=== PATIENT | female | born 1950 | race Caucasian/White ===

== ENCOUNTER 2016-10-06 13:05 | Day surgery (SDC) | payer MEDICARE, OTHER ==
--- OUTSIDE RECORDS SUMMARY | 2016-10-06 13:08 | XMS REPORT | Continuity of Care Document ---
:1950 Author Organization [employer] [place] [address] Care Team Providers Name Role Phone Moreno Davenport Primary Care Provider [phone] Source Comments This disclosure is being made pursuant to the [email or web address] program and maynot contain all information available regarding this patient.[facility] Active Allergies and Adverse Reactions Allergen Noted Date Severity Reactions Comments Harmon 09/30/2014 Other (See Comments) Current Medications Be aware that medications may not be up to date as of this document. Alwaysverify current medications with the patient. Prescription Sig. Disp. Refills Start Date End Date Status atorvastatin (LIPITOR) Take 1 tablet by Active 80 MG tablet mouth daily. losartan (COZAAR) 50 MG Take 1 tablet by Active tablet mouth daily. nitroGLYCERIN Place 1 tablet Active (NITROSTAT) 0.4 MG SL under the tongue tablet as needed. PACLitaxel Protein-Bound Inject into the Active Part (ABRAXANE IV) vein. Indications: Give D1, D8, D15 every 21 Started 11/18/2014 CARBOPLATIN IV Inject into the Active vein. Indications: Give D1 every 21 Started 11/18/2014 Palonosetron HCl (ALOXI Inject into the Active IV) vein. Indications: Give D1, D8, D15 every 21 Started 11/18/2014 INV INVESTIGATIONAL DRUG Indications: Give Active D1, D8, D15 every 21 Started 11/18/2014 magnesium 500 MG TABS Take 1,000 mg by Active tablet mouth 2 (two) times daily. multivitamin with Take by mouth Active minerals (THERA M PLUS) daily. TABS tablet tiotropium (SPIRIVA Place 1 capsule 60 capsule 6 09/06/2015 Active HANDIHALER) 18 MCG into inhaler and inhalation capsule inhale daily. budesonide-formoterol Inhale 2 puffs 1 Inhaler 12 09/06/2015 Active (SYMBICORT) 160-4.5 into the lungs 2 MCG/ACT inhaler (two) times daily. albuterol (PROAIR HFA) Inhale 2 puffs 1 Inhaler 4 09/06/2015 Active 108 (90 BASE) MCG/ACT into the lungs inhaler every 6 (six) hours as needed for Wheezing or Shortness of Breath. metoprolol succinate Take 50 mg by Active (TOPROL-XL) 50 MG 24 hr mouth daily. tablet isosorbide mononitrate Take 30 mg by Active (IMDUR) 30 MG 24 hr mouth daily. tablet lidocaine (LIDODERM) 5 % Place 1 patch 14 patch 0 11/24/2015 Active onto the skin daily. methocarbamol (ROBAXIN) Take 1 tablet by 90 tablet 0 11/26/2015 Active 750 MG tablet mouth 3 (three) times daily. ipratropium-albuterol Take 3 mLs by Active (DUONEB) 0.5-2.5 (3) nebulization 4 MG/3ML SOLN (four) times daily as needed. levofloxacin (LEVAQUIN) Take 500 mg by Active 500 MG tablet mouth daily. potassium chloride TAKE ONE TABLET 60 tablet 3 12/09/2015 Active (K-TAB, KLOR-CON) 10 MEQ BY MOUTH TWICE A tablet DAY hydrochlorothiazide TAKE ONE TABLET 30 tablet 3 12/20/2015 Active (HYDRODIURIL) 12.5 MG BY MOUTH EVERY tablet DAY LORazepam (ATIVAN) 0.5 Take 1 tablet by 90 tablet 1 01/14/2016 Active MG tablet mouth every 8 (eight) hours as needed for Anxiety. omeprazole (PRILOSEC) 40 TAKE ONE CAPSULE 60 capsule 6 01/25/2016 Active MG capsule BY MOUTH TWICE A DAY nystatin (MYCOSTATIN) APPLY TOPICALLY 30 g 0 03/14/2016 Active powder UNDER THE BREAST TWO TIMES A DAY Active Problems Problem Noted Date Sore throat 01/05/2016 COPD (chronic obstructive pulmonary disease) (HCC) 01/05/2016 Diarrhea 12/29/2015 Right-sided chest wall pain 11/25/2015 Encounter for antineoplastic chemotherapy 12/09/2014 Malignant neoplasm of lower lobe of right lung (HCC) 11/19/2014 History of tobacco use 11/19/2014 Dyspnea 08/20/2014 Chronic airway obstruction (HCC) 06/24/2013 Overview: Overview: Shin LAM MD Essential hypertension 12/18/2012 Overview: Overview: Hypercholesterolemia 12/18/2012 Overview: Overview: Resolved Problems Problem Noted Date Resolved Date Non-small cell lung cancer (HCC) 04/21/2015 06/23/2015 Examination of participant in clinical trial 04/21/2015 06/23/2015 Non-small cell cancer of right lung (HCC) 03/29/2015 06/23/2015 Neoplastic malignant related fatigue 03/17/2015 06/23/2015 Hypokalemia 03/12/2015 07/17/2015 Hypomagnesemia 03/12/2015 07/17/2015 Nausea & vomiting 03/12/2015 06/23/2015 Weakness generalized 01/27/2015 06/23/2015 Pneumonia, organism unspecified(486) 01/26/2015 06/23/2015 Neutropenia (HCC) 12/30/2014 06/23/2015 Leukopenia due to antineoplastic chemotherapy (HCC) 12/21/2014 06/23/2015 Anemia 12/21/2014 07/17/2015 Rash 12/21/2014 06/23/2015 Diarrhea 12/21/2014 06/23/2015 Vaginal spotting 04/12/2014 06/23/2015 Non-small cell carcinoma of right lung, stage 2 (HCC) 03/21/2014 10/14/2015 Non-small cell lung cancer (HCC) 12/28/2013 10/14/2015 Lump or mass in breast 09/24/2013 06/23/2015 Overview: Overview: Shin LAM MD Heart disease 12/18/2012 06/23/2015 Overview: Overview: Malignant neoplasm of bronchus and lung 12/18/2012 10/14/2015 Overview: Overview: Shin LAM MD Most Recent Encounters Date Type Specialty Providers Description 08/24/2016 Refill Oncology Darren Lam MD 08/23/2016 Refill Oncology Darren Lam MD 08/22/2016 Refill Oncology Darren Lam MD Social History Tobacco Use Types Packs/Day Years Used Date Former Smoker Smokeless Tobacco: Never Used Alcohol Use Drinks/Week oz/Week Comments Yes Alcoholic Drinks/day: 1 glass about every 2 months Last Filed Vital Signs Vital Sign Reading Time Taken Blood Pressure 128/80 01/17/2016 10:09 AM CDT Pulse 100 01/17/2016 10:09 AM CDT Temperature 36.3 C (97.3 F) 01/17/2016 10:09 AM CDT Respiratory Rate 20 01/17/2016 10:09 AM CDT Height 1.588 m (5' 2.5") 01/17/2016 10:09 AM CDT Weight 87.091 kg (192 lb) 01/17/2016 10:09 AM CDT Body Mass Index 34.54 01/17/2016 10:09 AM CDT Oxygen Saturation 95% 01/17/2016 10:09 AM CDT Plan of Care Patient Goal Type Goal Blood Pressure Blood Pressure below 140/90 Health Maintenance Due Date Last Done Comments Tetanus/Pertussis (1 - Tdap) 1969 Colonoscopy 2000 Well Adult Visit 2000 Zoster Vaccine 60+ 2010 Bone Density 2015 Pneumococcal Low/Medium Risk 65+ (1 of 2 - PCV13) 2015 Influenza Immunization (#1) 2015 Mammogram 08/31/2017 09/01/2015 Hepatitis C Screening Completed 11/06/2014 Results from Last 3 Months Not on file Insurance Payer Benefit Plan / Subscriber ID Type Phone Address Group MEDICARE MEDICARE A AND B [id number] [phone] [address] [place] [address] [facility] [id number] Managed [phone] [address] MEDICAID [place], [place] [id number] [phone] [place] [address]
--- NOTE | 2016-10-06 13:57 | OR ---
Anesthesia Pre Procedure Eval Date of Service: 10/06/16 Pre Procedure Evaluation: Last Vital Signs Temp 36.8 C 10/06/16 13:22 Pulse 103 H 10/06/16 13:22 Resp 18 10/06/16 13:22 BP 98/68 10/06/16 13:22 Pulse Ox 95 10/06/16 13:22 O2 Oxygen Delivery Method Nasal Cannula Anesthesia Pre Procedure Evaluation DATE: 10/06/2016 TIME: 1335 INDICATIONS: Rib pain status post rib resection. PAST MEDICAL HISTORY: Ms. Henao has had a pneumonectomy on the right side for cancer. She has had consistent severe pain for approximately 6 months which has been getting progressively worse. The pain is apparently localized at the right seventh rib area where there was a resection for the pneumonectomy. On interview she became rather faint which resolved on laying her back to a more supine position. Her preop blood pressure was 98/68 however on taking it after she was in the reclining position the blood pressure is 126/68 with a resolution of the faint feeling. She near simultaneously experienced nausea which eventually passed. Because she was very uncomfortable and thirsty I did have her drink some water and take her ondansetron. A bit later, shortly after the interview was completed she related that she was having pressure in the substernal area that was new to her and question whether this possibly her heart. Considering her multi-organ dysfunction it would be prudent to have her workup for chest pain protocol. As such I requested a transfer to ER for investigation of her current symptoms. EXAM: Heart regular; lungs diminished with rhonchi ASSESSMENT OF MEDICAL STATUS: See above, transferred to ER prior to procedure. PLANNED PROCEDURE: Deferred Home Medications: HOME MEDICATIONS Atorvastatin Calcium [Lipitor] 80 mg PO DAILY 12/08/13 [Last Taken Unknown] Losartan Potassium [Cozaar] 50 mg PO DAILY 12/08/13 [Last Taken Unknown] Nitroglycerin [Nitrostat] 0.4 mg SL [id number] PRN 12/08/13 [Last Taken Unknown] Omeprazole [Prilosec] 40 mg PO BID 12/08/13 [Last Taken Unknown] Budesonide [Pulmicort Respules] 2 ml IH BID 10/05/16 [Last Taken Unknown] Hypertonic Saline 7% 4 ml INH QID 10/05/16 [Last Taken Unknown] Ipratropium [place] [Ipratropium [place] (Atrovent)] 0.5 mg IH TID 10/05/16 [ Last Taken Unknown] Isosorbide Mononitrate [Imdur] 30 mg PO DAILY 10/05/16 [Last Taken Unknown] L.acidoph,Paracasei, B.lactis [Probiotic] 1 each PO DAILY 10/05/16 [Last Taken Unknown] LORazepam [Ativan] 0.5 mg PO BID PRN 10/05/16 [Last Taken Unknown] Lidocaine [Lidoderm 5%] 1 patch TP DAILY PRN 10/05/16 [Last Taken Unknown] Metoprolol Succinate [Toprol Xl] 50 mg PO DAILY 10/05/16 [Last Taken Unknown] Prochlorperazine Maleate [Compazine] 10 mg PO Q6H PRN 10/05/16 [Last Taken Unknown] Ranitidine HCl [Zantac] 300 mg PO HS 10/05/16 [Last Taken Unknown] Sucralfate [Carafate] 1 gm PO QID 10/05/16 [Last Taken Unknown] fentaNYL [Duragesic] 50 mcg TD Q72H 10/05/16 [Last Taken Unknown] guaiFENesin [Mucinex] 600 mg PO BID 10/05/16 [Last Taken Unknown] oxyCODONE HCL [Oxycodone HCl] 20 mg PO Q4H PRN 10/05/16 [Last Taken Unknown] Azithromycin 250 mg PO 3XW 10/06/16 [Last Taken Unknown] Hydrochlorothiazide 12.5 mg PO DAILY 10/06/16 [Last Taken Unknown] Multivitamin [One Daily Multivitamin] 1 each PO DAILY 10/06/16 [Last Taken Unknown]
--- NOTE | 2016-10-06 15:01 | OR ---
Anesthesia Pre Procedure Eval Date of Service: 10/06/16 Pre Procedure Evaluation: Last Vital Signs Temp 36.8 C 10/06/16 13:22 Pulse 103 H 10/06/16 13:22 Resp 18 10/06/16 13:22 BP 98/68 10/06/16 13:22 Pulse Ox 95 10/06/16 13:22 O2 Oxygen Delivery Method Nasal Cannula Anesthesia Pre Procedure Evaluation DATE: 10/06/2016 TIME: 1500 INDICATIONS: Intercostal pain status post rib resection right seventh rib PAST MEDICAL HISTORY: Patient's had a six-month history of increasing rib pain associated with rib resection status post pneumonectomy. Please see previous note for evaluation for potential chest pain issues. Her EKG was negative as were troponin levels. EXAM: Heart S1 and S2 regular; lungs rhonchi diminished right ASSESSMENT OF MEDICAL STATUS: Appropriate candidate for intercostal block. Risks and alternatives were discussed. PLANNED PROCEDURE: Intercostal block for pain. Home Medications: HOME MEDICATIONS Atorvastatin Calcium [Lipitor] 80 mg PO DAILY 12/08/13 [Last Taken Unknown] Losartan Potassium [Cozaar] 50 mg PO DAILY 12/08/13 [Last Taken Unknown] Nitroglycerin [Nitrostat] 0.4 mg SL [id number] PRN 12/08/13 [Last Taken Unknown] Omeprazole [Prilosec] 40 mg PO BID 12/08/13 [Last Taken Unknown] Budesonide [Pulmicort Respules] 2 ml IH BID 10/05/16 [Last Taken Unknown] Hypertonic Saline 7% 4 ml INH QID 10/05/16 [Last Taken Unknown] Ipratropium [place] [Ipratropium [place] (Atrovent)] 0.5 mg IH TID 10/05/16 [ Last Taken Unknown] Isosorbide Mononitrate [Imdur] 30 mg PO DAILY 10/05/16 [Last Taken Unknown] L.acidoph,Paracasei, B.lactis [Probiotic] 1 each PO DAILY 10/05/16 [Last Taken Unknown] LORazepam [Ativan] 0.5 mg PO BID PRN 10/05/16 [Last Taken Unknown] Lidocaine [Lidoderm 5%] 1 patch TP DAILY PRN 10/05/16 [Last Taken Unknown] Metoprolol Succinate [Toprol Xl] 50 mg PO DAILY 10/05/16 [Last Taken Unknown] Prochlorperazine Maleate [Compazine] 10 mg PO Q6H PRN 10/05/16 [Last Taken Unknown] Ranitidine HCl [Zantac] 300 mg PO HS 10/05/16 [Last Taken Unknown] Sucralfate [Carafate] 1 gm PO QID 10/05/16 [Last Taken Unknown] fentaNYL [Duragesic] 50 mcg TD Q72H 10/05/16 [Last Taken Unknown] guaiFENesin [Mucinex] 600 mg PO BID 10/05/16 [Last Taken Unknown] oxyCODONE HCL [Oxycodone HCl] 20 mg PO Q4H PRN 10/05/16 [Last Taken Unknown] Azithromycin 250 mg PO 3XW 10/06/16 [Last Taken Unknown] Hydrochlorothiazide 12.5 mg PO DAILY 10/06/16 [Last Taken Unknown] Multivitamin [One Daily Multivitamin] 1 each PO DAILY 10/06/16 [Last Taken Unknown]
[2016-10-06] MEDS ORDERED: LIDOCAINE HCL/PF 5 ML VIAL IJ ONE (15:45)
[2016-10-06] MEDS ORDERED: BUPIVACAINE HCL/EPINEPHRINE 10 ML VIAL IJ ONE (15:50)
[2016-10-06] MEDS ORDERED: DEXAMETHASONE SOD PHOSPHATE 10 MG/ML VIAL IJ ONE (15:50)
[2016-10-06] MEDS ORDERED: IOPAMIDOL 20 ML VIAL IJ ONE (15:50)
--- NOTE | 2016-10-06 16:13 | OR ---
Anesthesia Procedure Note - Anesthesia Procedure Note Date of Service: 10/06/16 Narrative: Vital Signs - Last Taken Temp 36.8 C 10/06/16 13:22 Pulse 103 H 10/06/16 13:22 Resp 18 10/06/16 13:22 BP 98/68 10/06/16 13:22 Pulse Ox 95 10/06/16 13:22 O2 Oxygen Delivery Method Nasal Cannula 10/06/16 16:06 Procedure: Intercostal nerve block Preoperative diagnosis: Right seventh rib pain status post seventh rib resection Indications: Intractable pain right seventh rib. Procedure: Right intercostal nerve block seventh rib under fluoroscopy Brief description of procedure: Ms. Henao was taken to OR #3 where she was placed in prone position, to a position of her comfort. The right posterior thorax was prepped with DuraPrep and draped in a sterile fashion. The right seventh rib was identified under fluoroscopy and by patient's description of current pain. The area was localized with 1% lidocaine solution, a small was placed at the local injection site, followed by insertion of a #22-gauge Castellano needle. The needle was walked off the lower margin of the rib and injection of 4 mL of 0.5% bupivacaine with 1-200,000 epi was performed. There was near immediate relief of pain indicating good needle placement, para 5 with 1/2 mL of Isovue 200. The injection the needle was then removed and a Band-Aid was applied. The pain decreased from approximately 10 over 10-0/10. This Juliano was quite pleased that she was pain-free which has been the first time in 6 months. There was no blood loss and no specimens were taken. She tolerated the procedure well and returned to [facility].
[2016-10-06 16:40] VITALS: BP 103/60
== END 2016-10-06 13:06 | disposition home or self-care (01) ==
LOC: AMB 13:05
PROVIDERS: ATTEND Internal Medicine
PROC: 3E0T3CZ (ICD-10-PCS; principal; 2016-10-06 14:15)
DX: G89.18 Other acute postprocedural pain (principal); R07.81 Pleurodynia; Z68.31 Body mass index [BMI] 31.0-31.9, adult

== ENCOUNTER 2016-10-06 14:03 | Emergency (ER) | payer MEDICARE, OTHER ==
--- OUTSIDE RECORDS SUMMARY | 2016-10-06 14:26 | XMS REPORT | Continuity of Care Document ---
:1950 Author Organization [employer] [place] [address] Care Team Providers Name Role Phone Moreno Davenport Primary Care Provider [phone] Source Comments This disclosure is being made pursuant to the [employer] program and maynot contain all information available regarding this patient.[facility] Active Allergies and Adverse Reactions Allergen Noted Date Severity Reactions Comments Kidder 09/30/2014 Other (See Comments) Current Medications Be [...] Address Group MEDICARE MEDICARE A AND B [id number] [phone] [address] [place] [address] [facility] [id number] Managed [phone] [address] MEDICAID [place], [place] [id number] [phone] [place] [address]
[2016-10-06 14:29] LABS: Hematocrit 34.7 % (37.0-47.0); Hemoglobin 10.9 gm/dL (12.5-16.0); Mean Cell Volume 87.2 fl (78-100); Mean Corpuscular Hemoglobin 27.4 pg (27-31); Mean Corpuscular Hgb Conc 31.4 g/dl (32-36); Mean Platelet Volume 8.3 fl (6.0-9.5); Neutrophil # 6.6 K/mm3 (1.3-6.0); Neutrophil % 76.1 % (42-75.0); Platelet Count 373 K/mm3 (150-450); Red Blood Count 3.98 M/mm3 (4.2-5.4); Red Cell Distribution Width 15.3 % (11.5-14.0); White Blood Count 8.6 K/mm3 (4.0-10.5)
--- NOTE | 2016-10-06 14:32 | ERNOTE ---
Chest Pain/Cardiac HPI Chief Complaint: Chest Pain Time Seen by Provider: 10/06/16 14:17 Source: patient Exam Limitations: no limitations Immunizations: IMMUNIZATION HX Immunizations Up to Date Yes History of Influenza Vaccine Yes Hx Pneumococcal Vaccination Yes Allergies/Adverse Reactions: Allergies No Known Allergies Allergy (Verified 10/06/16 13:28) Home Medications: HOME MEDICATIONS Atorvastatin Calcium [Lipitor] 80 mg PO DAILY 12/08/13 [Last Taken Unknown] Losartan Potassium [Cozaar] 50 mg PO DAILY 12/08/13 [Last Taken Unknown] Nitroglycerin [Nitrostat] 0.4 mg SL [id number] PRN 12/08/13 [Last Taken Unknown] Omeprazole [Prilosec] 40 mg PO BID 12/08/13 [Last Taken Unknown] Budesonide [Pulmicort Respules] 2 ml IH BID 10/05/16 [Last Taken Unknown] Hypertonic Saline 7% 4 ml INH QID 10/05/16 [Last Taken Unknown] Ipratropium [place] [Ipratropium [place] (Atrovent)] 0.5 mg IH TID 10/05/16 [ Last Taken Unknown] Isosorbide Mononitrate [Imdur] 30 mg PO DAILY 10/05/16 [Last Taken Unknown] L.acidoph,Paracasei, B.lactis [Probiotic] 1 each PO DAILY 10/05/16 [Last Taken Unknown] LORazepam [Ativan] 0.5 mg PO BID PRN 10/05/16 [Last Taken Unknown] Lidocaine [Lidoderm 5%] 1 patch TP DAILY PRN 10/05/16 [Last Taken Unknown] Metoprolol Succinate [Toprol Xl] 50 mg PO DAILY 10/05/16 [Last Taken Unknown] Prochlorperazine Maleate [Compazine] 10 mg PO Q6H PRN 10/05/16 [Last Taken Unknown] Ranitidine HCl [Zantac] 300 mg PO HS 10/05/16 [Last Taken Unknown] Sucralfate [Carafate] 1 gm PO QID 10/05/16 [Last Taken Unknown] fentaNYL [Duragesic] 50 mcg TD Q72H 10/05/16 [Last Taken Unknown] guaiFENesin [Mucinex] 600 mg PO BID 10/05/16 [Last Taken Unknown] oxyCODONE HCL [Oxycodone HCl] 20 mg PO Q4H PRN 10/05/16 [Last Taken Unknown] Azithromycin 250 mg PO 3XW 10/06/16 [Last Taken Unknown] Hydrochlorothiazide 12.5 mg PO DAILY 10/06/16 [Last Taken Unknown] Multivitamin [One Daily Multivitamin] 1 each PO DAILY 10/06/16 [Last Taken Unknown] Narrative: Patient has a history of lung cancer with right lung resection in 2012. She is still on chemo every other week, last does yesterday.Due to severe pain she was referred for an intercostal block, has been NPO since last night but took all of her medications this morning.During the pre procedure evaluation she started to feel nauseated, dizzy and had epigastric pain that lasted about five minutes and has now resolved. She was brought over from ambulatory surgery for evaluation, feels tired currently Review of Systems - Review of Systems Constitutional: Absent: recent illness, fever Respiratory: Absent: shortness of breath, cough Cardiology: Present: See HPI, chest pain. Absent: palpitations Gastrointestinal/Abdominal: Absent: nausea, abdominal pain Genitourinary: Present: no symptoms reported Musculoskeletal: Present: See HPI Neurological: Absent: weakness, numbness - Patient's Past Medical History Patient History - Medical: No pertinent hx Patient History - Cardiac/Respiratory: Coronary Heart Disease, COPD, Hypertension, Pneumonia Patient History - Cancer: Lung Patient History - Surgical Procedures: Cholecystectomy, Ear Tubes, Hysterectomy , Other Patient History - Other: None LMP (females 10-50): Menopausal - Social History Living Situations: home Abuse History: No History of abuse Psych History: Hx of Depression Smoking Status: Former smoker Alcohol Use: none Drug Use: none - Immunizations Immunizations Up to Date: Yes Hx Pneumococcal Vaccination: Yes History of Influenza Vaccine: Yes Physical Exam - Physical Exam General Appearance: Present: wd/wn, alert, no apparent distress Respiratory: Present: no respiratory distress, normal breath sounds, no accessory muscle use, lungs clear Cardiovascular/Chest: Present: regular rate, rhythm, no murmur Gastrointestinal/Abdominal: Present: normal bowel sounds, nontender, nondistended, soft Extremity Exam: Present: no edema Neurological Exam: Present: alert, oriented, normal mood/affect Skin Exam: Present: normal color, warm/dry ED Progress - Results and Orders Patient's Lab Results:: I have reviewed the patient's lab results. - Vital Signs Patient's Vital Signs:: I have reviewed the patient's vital signs. Vital Signs: Vital Signs 10/06/16 10/06/16 10/06/16 13:22 14:04 14:14 Temperature 36.8 C 36.7 C Pulse Rate 86 85 Respiratory 14 14 Rate Blood Pressure 98/68 119/57 119/57 O2 Sat by Pulse 99 97 Oximetry - EKG EKG: NSR, no ST T wave changes, other - no acute, no prior EKG read: Interp. by me - X-Ray X-Ray #1 X-Ray: chest - chronic changes Interpretation: Reviewed by me - Progress/Reassessment Chief Complaint: Chest Pain Progress Note-Subjective: 10/06/16 15:19 no pain, discussed results, patient would like to proceed with intercostal block Departure - Departure Clinical Impression: Chest pain Qualifiers: Chest pain type: unspecified Qualified Code(s): R07.9 - Chest pain, unspecified Disposition: Home self-care Condition: Good Additional Instructions: go to ambulatory now
[2016-10-06 14:42] LABS: Prothrombin Time (Patient) 10.4 Seconds (9.4-11.4)
[2016-10-06 14:44] LABS: Partial Thrombolplastin Time 26.4 Seconds (24-32)
[2016-10-06] MEDS ORDERED: ASPIRIN 81 MG TAB.CHEW PO ONE (14:45)
[2016-10-06 14:46] VITALS: BP 110/56
[2016-10-06] MEDS ORDERED: ASPIRIN 81 MG TAB.CHEW ONE (14:47)
[2016-10-06 14:51] LABS: ALT 28 U/L (19-67); AST 20 U/L (0-48); Albumin * 2.8 gm/dl (3.4-5.0); Alkaline Phosphatase * 89 U/L (50-170); Anion Gap 8.3 mmol/L (6.8-13.8); BUN/Creatinine Ratio 13.3 (9.0-21.6); Bilirubin, Total 0.4 mg/dL (0.0-1.1); Blood Urea Nitrogen 10 mg/dL (3-23); Ca. Corrected For Albumin 9.6 mg/dL (8.4-10.2); Carbon Dioxide 32.7 mmol/L (24-32.6); Chloride 103 mmol/L (97-106); Glucose * 92 mg/dL (70-110); Sodium 140 mmol/L (132-142); Total Protein 6.9 gm/dL (6.2-8.2)
[2016-10-06 14:52] LABS: Troponin I Less than 0.017 ng/ml (0.00-0.10)
== END 2016-10-06 15:20 | disposition home or self-care (01) ==
LOC: ER 14:03
DX: R07.9 Chest pain, unspecified (principal); I25.2 Old myocardial infarction; J44.9 Chronic obstructive pulmonary disease, unspecified; I10 Essential (primary) hypertension; Z85.118 Personal history of other malignant neoplasm of bronchus and lung

== ENCOUNTER 2017-01-04 08:32 | Day surgery (SDC) | payer MEDICARE, OTHER ==
--- NOTE | 2017-01-04 09:32 | OR ---
Anesthesia Pre Procedure Eval Date of Service: 01/04/17 Pre Procedure Evaluation: Last Vital Signs Temp 35.8 C L 01/04/17 08:56 Pulse 99 01/04/17 08:56 Resp 20 01/04/17 08:56 BP 109/67 01/04/17 08:56 Pulse Ox 95 01/04/17 08:56 O2 Oxygen Delivery Method Nasal Cannula Anesthesia Pre Procedure Evaluation DATE: 01/04/2017 TIME: 0925 AM INDICATIONS: Rib pain status post rib resection, adenocarcinoma of lungs PAST MEDICAL HISTORY: Ms. Henao has a history of adenocarcinoma and has greatly diminished lung capacity due to lobectomies. She had a rib resection associated with the lobectomy and has had chronic pain since that period of time. Approximately 3 months ago I performed an intercostal nerve block in which she had good initial relief and had much more energy for the first week. However after that time the pain began to recur and is currently at at least point where it was prior to the initial injection. I discussed the procedure risks and benefits with the patient, as well as alternative therapies. My concern is with such a short length of relief is that if this injection does not give a greater length of relief I would consider ablation therapy. History of GERD: No History of smoking: No History of sleep apnea: No EXAM: Heart regular; lungs clear ASSESSMENT OF MEDICAL STATUS: Appropriate candidate for intercostal nerve block PLANNED PROCEDURE: Intercostal nerve block right seventh rib Home Medications: HOME MEDICATIONS Atorvastatin Calcium [Lipitor] 80 mg PO DAILY 12/08/13 [Last Taken Unknown] Nitroglycerin [Nitrostat] 0.4 mg SL [id number] PRN 12/08/13 [Last Taken Unknown] Omeprazole [Prilosec] 40 mg PO BID 12/08/13 [Last Taken Unknown] Budesonide [Pulmicort Respules] 2 ml IH BID 10/05/16 [Last Taken Unknown] Ipratropium [place] [Ipratropium [place] (Atrovent)] 0.5 mg IH TID 10/05/16 [ Last Taken Unknown] Isosorbide Mononitrate [Imdur] 30 mg PO DAILY 10/05/16 [Last Taken Unknown] L.acidoph,Paracasei, B.lactis [Probiotic] 1 each PO DAILY 10/05/16 [Last Taken Unknown] LORazepam [Ativan] 0.5 mg PO TID PRN 10/05/16 [Last Taken Unknown] Lidocaine [Lidoderm 5%] 1 patch TP DAILY PRN 10/05/16 [Last Taken Unknown] Metoprolol Succinate [Toprol Xl] 50 mg PO DAILY 10/05/16 [Last Taken Unknown] Prochlorperazine Maleate [Compazine] 10 mg PO Q6H PRN 10/05/16 [Last Taken Unknown] Ranitidine HCl [Zantac] 300 mg PO HS 10/05/16 [Last Taken Unknown] fentaNYL [Duragesic] 50 mcg TD Q72H 10/05/16 [Last Taken Unknown] oxyCODONE HCL [Oxycodone HCl] 40 mg PO Q4H PRN 10/05/16 [Last Taken Unknown] Azithromycin 500 mg PO 3XW 10/06/16 [Last Taken Unknown] Bisacodyl [Dulcolax Suppository] 10 mg RC DAILY PRN 01/02/17 [Last Taken Unknown ] Multivitamins [Multivitamin Tee] 1 cap PO DAILY 01/02/17 [Last Taken Unknown] Naloxegol Oxalate [Movantik] 25 mg PO DAILY 01/02/17 [Last Taken Unknown] Nivolumab [Opdivo] 100 mg IV Q14D 01/02/17 [Last Taken Unknown] Olodaterol HCl [Striverdi Respimat] 2 puff IH DAILY 01/02/17 [Last Taken Unknown ] Polyethylene Glycol 3350 [Miralax] 17 gm PO DAILY 01/02/17 [Last Taken Unknown] Sennosides/Docusate Sodium [Senna-Docusate Sodium Tablet] 1 each PO BID [Last Taken Unknown] Umeclidinium [place] [Incruse Ellipta] 1 puff IH DAILY 01/02/17 [Last Taken Unknown] guaiFENesin [Mucinex] 1,200 mg PO Q12H 01/02/17 [Last Taken Unknown]
[2017-01-04] MEDS ORDERED: LIDOCAINE HCL/PF 5 ML VIAL IJ ONE (09:45)
[2017-01-04] MEDS ORDERED: BUPIVACAINE HCL/EPINEPHRINE 50 ML VIAL IJ ONE (09:50)
[2017-01-04] MEDS ORDERED: DEXAMETHASONE SODIUM PHOSP/PF 10 MG/ML VIAL IJ ONE (09:50)
--- NOTE | 2017-01-04 10:11 | OR ---
Anesthesia Procedure Note - Anesthesia Procedure Note Date of Service: 01/04/17 Narrative: Vital Signs - Last Taken Temp 35.8 C L 01/04/17 08:56 Pulse 99 01/04/17 08:56 Resp 20 01/04/17 08:56 BP 109/67 01/04/17 08:56 Pulse Ox 95 01/04/17 08:56 O2 Oxygen Delivery Method Nasal Cannula 01/04/17 10:00 ANESTHESIA PROCEDURE NOTE Date of Procedure: 01/04/2017 Time of procedure: . Performed by: Harrison Cordoba CRNA, [employer], MSN Transfer Car Operator: Mariah De Los Santos RN. Preprocedure diagnosis: Right rib pain status post rib resection, status post lobectomy for adenocarcinoma. Post procedure diagnosis: Same. Procedure: Right intercostal nerve block. Indications: Right intercostal pain status post pneumonectomy. Findings: See below. Details of the procedure: After the patient was interviewed where risks and the procedure were explained. The patient was then brought to or 4 and was placed in the prone position. The back was prepped with DuraPrep and draped in a sterile fashion. The right thoracic area was identified under fluoroscopy and the point of maximal pain on palpation was localized with 1% lidocaine solution. The rib was contacted using a 22-gauge Castellano needle. 1 mL of Isovue was injected while the C-arm was positioned in the AP orientation demonstrating a spread at the affected area. Of note counting from the caudad level upwards it appeared as if this was the ninth rib forever it is possible that I did not adequately view the floating ribs. Regardless, the point of maximal pain is the target area for this block. As such, dexamethasone 10mg and bupivacaine 0.5% 6 mL was injected, stylette was replaced and the spinal needle removed. Additional palpation both above and below the affected area was performed with the inability to elicit any pain response. Being satisfied we reached the target area pain, A Band-Aid was then applied to the injection site, the patient was placed in a supine position for 5 minutes then returned to ASU with good relief of pain, from a 5/10 to 0/10. EBL: None. Energy: 26 Seconds, 19.33 mGy Fluids: N/A. Specimen: N/A. Post procedure condition: The patient tolerated the procedure well. No complications were noted. Thank you for this consultation. Harrison Cordoba CRNA, MSN, [employer]
[2017-01-04 10:35] VITALS: BP 118/62
== END 2017-01-04 08:33 | disposition home or self-care (01) ==
LOC: AMB 08:32
PROVIDERS: ATTEND Internal Medicine
PROC: 3E0T3BZ Introduction of Anesthetic Agent into Peripheral Nerves and Plexi, Percutaneous Approach (ICD-10-PCS; principal; 2017-01-04 10:00)
DX: R07.81 Pleurodynia (principal); G89.18 Other acute postprocedural pain